=== PATIENT | male | born 1970 | race African-American/Black ===

== ENCOUNTER → 2017-06-17 | Outpatient (CLI) | payer OTHER ==
[~2017-06-17] MED LIST: ATIVAN PO; FLUT0.15; MONT1TAB3 PO; OMEG10007 PO; OMEP40CA PO; PRVHFAIN PO; SUCR1TAB PO; ZOLP5TAB PO
--- NOTE | 2017-06-17 15:24 | DIAGNOSTIC IMAGING REPORT ---
RIGHT KNEE 3 VIEWS CLINICAL HISTORY: JOSE DANLOS SYNDROME TYPE 3 Right COMPARISON: None. DISCUSSION: Significant degenerative change all major joint compartments. This is most prominent medially. Moderate reactive osteophytic changes throughout. No significant joint effusion. There is no evidence for soft tissue swelling. IMPRESSION: Considerable degenerative change all major joint compartments. No acute process. The above report was generated using voice recognition software. It may contain grammatical, syntax or spelling errors. Electronically signed by: Jose Francisco Serrato M.D. 06/17/2017 3:23 PM Dictated Date/Time: 06/17/2017 3:22 PM
--- NOTE | 2017-06-17 15:24 | DIAGNOSTIC IMAGING REPORT ---
LEFT HAND MIN 3 VIEWS ROUTINE CLINICAL HISTORY: JOSE DANLOS SYNDROME TYPE 3 pain COMPARISON: None. DISCUSSION: The bones and joint spaces appear intact. There is no evidence of fracture, dislocation or bony disease. There is no evidence for soft tissue swelling. IMPRESSION: Negative study. The above report was generated using voice recognition software. It may contain grammatical, syntax or spelling errors. Electronically signed by: Jose Francisco Serrato M.D. 06/17/2017 3:23 PM Dictated Date/Time: 06/17/2017 3:23 PM
--- NOTE | 2017-06-17 15:27 | DIAGNOSTIC IMAGING REPORT ---
LEFT ANKLE MIN 3 VIEWS ROUTINE CLINICAL HISTORY: 46 years-old Male presenting with JOSE DANLOS SYNDROME TYPE 3, left ankle pain. TECHNIQUE: Frontal, mortise, and lateral views of the left ankle were obtained. COMPARISON: None. FINDINGS: Deformity of the lateral aspect of the distal tibial metaphysis and chronic deformity of the ankle mortise. There is joint space narrowing along the medial clear space and widening of the lateral joint space. No significant widening of the tibiofibular articulation. The talus has varus alignment. Associated degenerative change. Mild surrounding soft tissue swelling. No acute fracture. 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 Electronically signed by: Sean Umana M.D. 06/17/2017 3:26 PM Dictated Date/Time: 06/17/2017 3:23 PM
--- NOTE | 2017-06-17 15:31 | DIAGNOSTIC IMAGING REPORT ---
RIGHT HAND MIN 3 VIEWS ROUTINE CLINICAL HISTORY: JOSE DANLOS SYNDROME TYPE 3 Right pain COMPARISON: None. DISCUSSION: The bones and joint spaces appear intact. There is no evidence of fracture, dislocation or bony disease. There is no evidence for soft tissue swelling. IMPRESSION: Negative study. The above report was generated using voice recognition software. It may contain grammatical, syntax or spelling errors. Electronically signed by: Jose Francisco Serrato M.D. 06/17/2017 3:30 PM Dictated Date/Time: 06/17/2017 3:29 PM
== END | disposition home or self-care (01) ==
LOC: C.RAD1850 14:56
PROVIDERS: ATTEND Internal Medicine Rheumatology
DX: Q79.6 Ehlers-Danlos syndromes (principal); K22.4 Dyskinesia of esophagus; R76.8 Other specified abnormal immunological findings in serum; R06.02 Shortness of breath

== ENCOUNTER → 2017-08-26 | Outpatient (CLI) | payer OTHER ==
[2017-08-26 14:08] LABS: ALT/SGPT 35 U/L (12-78); AST/SGOT 15 U/L (15-37); BLOOD UREA NITROGEN 12 mg/dl (7-18); BUN/CREATININE RATIO 9.5 (10-20); CALCIUM 8.8 mg/dl (8.5-10.1); CARBON DIOXIDE 25 mmol/L (21-32); CHLORIDE 109 mmol/L (98-107); CHOLESTEROL 232 mg/dl (0-200); GLUCOSE 100 mg/dl (70-99); POTASSIUM 3.7 mmol/L (3.5-5.1); SODIUM 142 mmol/L (136-145)
[2017-08-26 14:20] LABS: ALB/GLOB RATIO 0.9 (0.9-2); ALKALINE PHOSPHATASE 69 U/L (45-117); CHOLESTEROL/HDL RATIO 4.5; HDL CHOLESTEROL 51 mg/dl; LDL CHOLESTEROL CALCULATED 163 mg/dl; PROSTATE SPECIFIC ANTIGEN 0.415 ng/ml (0.000-4.000); THYROID STIMULATING HORMONE 0.993 uIu/ml (0.300-4.500); TRIGLYCERIDES 89 mg/dl (0-150); VERY LOW DENSITY LIPOPROT CALC 18 mg/dl
[2017-08-26 14:47] LABS: ESTIMATED AVERAGE GLUCOSE 146 mg/dl; HA1C FLAG Normal (Normal)
== END | disposition home or self-care (01) ==
LOC: C.LABBC 09:56
PROVIDERS: ATTEND Internal Medicine
DX: Q79.6 Ehlers-Danlos syndromes (principal)

== ENCOUNTER → 2018-03-16 | Outpatient (CLI) | payer OTHER | END | disposition home or self-care (01) | LOC: C.LABSPEC 16:43 | PROVIDERS: ATTEND Internal Medicine | DX: E78.5 Hyperlipidemia, unspecified (principal); I10 Essential (primary) hypertension; R73.03 Prediabetes; B35.1 Tinea unguium ==

== ENCOUNTER → 2018-06-20 | Outpatient (CLI) | payer OTHER, BC ==
[~2018-06-20] MED LIST changes: +ACET-1693 PO; +ADVIN25/60 INH; -ATIVAN PO; +ATV/1 PO; +CETI10TA10 PO; +CHOLCAP5 PO; -FLUT0.15; +FLUT0.15 NAE; +FLX10 PO; +IBUP-1050 PO; +MELO-83 PO; +METF500T5 PO; -MONT1TAB3 PO; +OMEP20CA9 PO; -OMEP40CA PO; -PRVHFAIN PO; +RIZA10TA21 PO; +TRIATAB3 PO; +VNTHFA/IN INH; -ZOLP5TAB PO; +ZOLP5TAB6 PO
--- NOTE | 2018-06-20 10:25 | DIAGNOSTIC IMAGING REPORT ---
LEFT HAND 3 VIEWS HISTORY: Left hand pain. COMPARISON: None. FINDINGS: There is no acute fracture or dislocation. Soft tissues are unremarkable. Old, healed ulnar styloid fracture. Mild osteoarthritis at the first carpometacarpal joint. This remains unchanged. Small ossific density at the radiocarpal joint consistent within an intra-articular loose body. This is likely due to old trauma. Bone mineralization is intact. No erosive changes identified. IMPRESSION: 1. No acute fracture or dislocation within the left hand. 2. Mild osteoarthritis at the first carpometacarpal joint. 3. Old post traumatic changes at the wrist. Electronically signed by: Iggy Mello M.D. 06/20/2018 10:24 AM Dictated Date/Time: 06/20/2018 10:22 AM
== END | disposition home or self-care (01) ==
LOC: C.RADBC 09:49
PROVIDERS: ATTEND Nurse Practitioner Adult Health
DX: M19.042 Primary osteoarthritis, left hand (principal)